=== PATIENT | male | born 1970 | race Two or more races ===

== ENCOUNTER 2022-06-08 20:09 | Emergency (ER) | payer SELFPAY ==
[~2022-06-08] VITALS: Ht 157.5 cm; Wt 72.6 kg
--- NOTE | 2022-06-08 20:35 | NUR ---
EVELINA 83 FROM HOME C/O ABD PAIN AND HEADACHE X 2 HOURS TRIED TO RELIEVE PAIN BY "SMOKING MARIJUANA" NO RELIEF. PLACED ON BED, [id number]. AMBULATORY GOING TO THE RESTROOM FOR URINE SAMPLE.
--- NOTE | 2022-06-08 20:40 | NUR ---
URINE SAMPLE SENT TO LAB
[2022-06-08] MEDS ORDERED: ONDANSETRON 4 MG TAB.RAPDIS SL ONE (21:00)
[2022-06-08] MEDS ORDERED: ACETAMINOPHEN ES 500 MG TABLET PO ONE (21:00)
[2022-06-08] MEDS ORDERED: LIDOCAINE VISCOUS 2% UD 15 ML UDC MM ONE (21:00)
[2022-06-08] MEDS ORDERED: MAG HYDROX/AL HYDROX/SIMETH 30 ML UDC PO ONE (21:00)
[2022-06-08] MEDS ORDERED: LIDOCAINE VISCOUS 2% UD 15 ML UDC ONE (21:09)
[2022-06-08] MEDS ORDERED: MAG HYDROX/AL HYDROX/SIMETH 30 ML UDC ONE (21:09)
[2022-06-08] MEDS ORDERED: ONDANSETRON 4 MG TAB.RAPDIS ONE (21:10)
[2022-06-08] MEDS ORDERED: ACETAMINOPHEN ES 500 MG TABLET ONE (21:10)
[2022-06-08] MEDS ORDERED: PANT40TA2 PO (21:37)
[2022-06-08] MEDS ORDERED: ONDA4TAB5 PO (21:37)
[2022-06-08 21:45] VITALS: BP 145/75
--- NOTE | 2022-06-08 21:45 | NUR ---
Patient discharged to home in stable condition. Written and verbal after care instructions given. Patient verbalizes understanding of instruction.
== END 2022-06-08 21:45 | disposition home or self-care (01) ==
LOC: ER 20:18
DX: F10.10 Alcohol abuse, uncomplicated (principal); R10.13 Epigastric pain; R51.9 Headache, unspecified; I10 Essential (primary) hypertension; E11.9 Type 2 diabetes mellitus without complications; Y90.9 Presence of alcohol in blood, level not specified
CPT/HCPCS: 99284; Q0162

== ENCOUNTER 2022-11-23 14:11 | Emergency (ER) | payer MEDICAID ==
[~2022-11-23] VITALS: Ht 170.2 cm; Wt 72.6 kg
[~2022-11-23 14:11] MED LIST: ONDA4TAB5 PO; PANT40TA2 PO
[2022-11-23] MEDS ORDERED: IV NS 0.9% 1,000 ML IV ONE (14:30)
[2022-11-23] MEDS ORDERED: PANTOPRAZOLE 40 MG VIAL IV ONE (14:30)
[2022-11-23] MEDS ORDERED: Thiamine 100 MG in IV D5W 50 ML IV SCH (14:30)
[2022-11-23] MEDS ORDERED: LORAZEPAM INJ 2 MG/ML VIAL ONE (14:38)
[2022-11-23 14:58] LABS: BASOPHILS % (AUTO) 0.6 % (0.0-2.0); EOSINOPHILS % (AUTO) 1.5 % (0.0-6.0); HEMATOCRIT 39 % (39-51); HEMOGLOBIN 12.9 g/dL (13.5-17.5); LYMPHOCYTES # (AUTO) 1.8 K/uL (0.8-4.8); LYMPHOCYTES % (AUTO) 33.2 % (20.0-44.0); MEAN CORPUSCULAR HGB CONC 33 g/dl (31.0-36.0); MEAN CORPUSCULAR VOLUME 99 fL (80-96); MONOCYTES # (AUTO) 0.4 K/uL (0.1-1.30); MONOCYTES % (AUTO) 8.1 % (2.0-12.0); NEUTROPHILS % (AUTO) 56.6 % (43.0-81.0); PLATELET COUNT (AUTO) 131 K/uL (150-450); RED BLOOD CELL COUNT(AUTO) 3.98 MIL/uL (4.5-6.0); WHITE BLOOD COUNT (AUTO) 5.3 K/uL (4.3-11.0)
[2022-11-23] MEDS ORDERED: LORAZEPAM INJ 2 MG/ML VIAL IV ONE (15:00)
[2022-11-23] MEDS ORDERED: PANTOPRAZOLE 40 MG VIAL ONE (15:02)
[2022-11-23 15:16] LABS: ALANINE AMINOTRANSFERASE 104 U/L (12-78); ALBUMIN 3.7 g/dL (3.4-5.0); ALKALINE PHOSPHATASE 109 U/L (46-116); ASPARTATE AMINOTRANSFERASE 46 U/L (15-37); BILIRUBIN,DIRECT 0.1 mg/dL (0.0-0.2); BILIRUBIN,TOTAL 0.2 mg/dL (0.2-1.0); CALCIUM, SERUM 8.6 mg/dL (8.5-10.1); CARBON DIOXIDE 25 mmol/L (21-32); CHLORIDE 105 mmol/L (98-107); CREATININE 1.2 mg/dL (0.6-1.3); GLUCOSE 159 mg/dL (74-106); LIPASE 91 U/L (73-393); POTASSIUM 3.6 mmol/L (3.5-5.1); SODIUM SERUM 142 mmol/L (136-145); TOTAL PROTEIN, SERUM 7.6 g/dL (6.4-8.2); UREA NITROGEN, BLOOD 16 mg/dL (7-18)
--- NOTE | 2022-11-23 15:32 | NUR ---
yosi from [facility], c/o dizziness, bs 175, also c/o abd pain, kept pt at comfortable position.
[2022-11-23] MEDS ORDERED: LIDOCAINE VISCOUS 2% UD 15 ML UDC ONE (15:36)
[2022-11-23] MEDS ORDERED: MAG HYDROX/AL HYDROX/SIMETH 30 ML UDC ONE (15:36)
[2022-11-23] MEDS ORDERED: LIDOCAINE VISCOUS 2% UD 15 ML UDC MM ONE (16:00)
[2022-11-23] MEDS ORDERED: MAG HYDROX/AL HYDROX/SIMETH 30 ML UDC PO ONE (16:00)
--- NOTE | 2022-11-23 16:52 | NUR ---
PT SLEEPING, ON MONITOR WITH STABLE VITALS. WILL CONTINUE TO MONITOR
--- NOTE | 2022-11-23 18:32 | NUR ---
PT AWAKE, VERBALLY RESPONSIVE, AMBULATORY WITH STEADY GAIT, WITH IN STABLE VITALS. DR AGUILAR MADE AWARE. IV removed. Catheter intact and site benign. Pressure and 4x4 applied to site. No bleeding noted.
[2022-11-23 18:37] VITALS: BP 119/79
== END 2022-11-23 18:39 | disposition home or self-care (01) ==
LOC: ER 14:13
DX: R10.13 Epigastric pain (principal); I10 Essential (primary) hypertension; E11.9 Type 2 diabetes mellitus without complications; Z79.899 Other long term (current) drug therapy
CPT/HCPCS: 99285; 96365; 76705; 71045; 96375; 93005; 85025; 80048; 83690; 80076; 36415; 84484; 85730; J2060; J7060; C9113; J3411; J7030